=== PATIENT | female | born 1945 | race Caucasian/White ===

== ENCOUNTER 2017-01-15 10:42 | Day surgery (SDC) | payer MEDICARE ==
[~2017-01-15 10:42] MED LIST: AMLO5TAB2 PO; ASPI81CH CHEW; ATOR40TA16 PO; Aspirin Ec PO; BENZ1CAP34 PO; BLOOD PRESSURE1 M20; CHOL50006 PO; ENAL10TA PO; OMEP20TA PO; VENTAER INH
[2017-01-15] MEDS ORDERED: VANCOMYCIN 1000 MG/NS 250 ML IV SCH ×2 (11:00)
[2017-01-15] MEDS ORDERED: MUPIROCIN 2% OINT 1 APPLIC/GM SYR NASAL SCH (11:00)
[2017-01-15] MEDS ORDERED: POVIDONE IODINE 5% (ANTISEPSIS KIT) 4 APPLICATIONS EACH NARE SCH (11:00)
[2017-01-15] MEDS ORDERED: ceFAZolin 2 GM PREMIX 50 ML IV SCH (11:00)
[2017-01-15] MEDS ORDERED: CHLORHEXIDINE GLUCONATE 2 % 1 PACK (2 CLOTHS) TOP SCH (11:00)
[2017-01-15] MEDS ORDERED: MIDAZOLAM HCL 5 MG/5 ML VIAL ONE (12:04)
[2017-01-15] MEDS ORDERED: LIDOCAINE HCL 2% 50 ML VIAL ONE (12:40)
[2017-01-15] MEDS ORDERED: LIDOCAINE HCL 1% PF 30 ML VIAL ONE (12:41)
--- NOTE | 2017-01-15 13:01 | MA ---
cc: ELEAZAR TORREZ MD DATE: 01/15/2017 PROCEDURE Loop recorder insertion. INDICATION Embolic CVA. DESCRIPTION OF PROCEDURE The patient was brought to the DOC unit in the postabsorptive state. After informed consent was obtained the patient was put under moderate sedation for approximately 15 minutes. Using the standard sterile technique a [employer] LINQ loop recorder was inserted subcutaneously to the left chest. The patient tolerated the procedure well without any apparent complications. Anesthesia used was 2 mg of Versed and 25 mcg of fentanyl. The initial R-wave was 0.26 mV. Tachybrady pause and atrial fibrillation detection was enabled. The serial number was [id number]. Eleazar Torrez MD KATT/BT /12:48 PM /12:55 PM
[2017-02-23] MEDS ORDERED: OMEP20TA PO (10:42)
[2017-03-24] MEDS ORDERED: ENAL10TA PO (13:54)
== END 2017-01-15 13:50 | disposition home or self-care (01) ==
LOC: HDOC 10:42 → HDIC 10:43 → HDOC 13:50
PROVIDERS: ATTEND Nuclear Medicine Nuclear Cardiology
DX: I63.9 Cerebral infarction, unspecified (principal); J44.9 Chronic obstructive pulmonary disease, unspecified; I11.9 Hypertensive heart disease without heart failure; Z72.0 Tobacco use
CPT/HCPCS: 33282; C1764; J2250; J3010